=== PATIENT | male | born 1990 | race Caucasian/White ===

== ENCOUNTER 2021-04-01 07:54 | Outpatient (CLI) | payer OTHER, SELFPAY ==
[2021-04-04 13:05] LABS: Testosterone Total 616 ng/dL (250-1100)
== END 2021-04-01 07:55 | disposition home or self-care (01) ==
PROVIDERS: PCP Family Medicine Adolescent Medicine; Visit Provider Internal Medicine Endocrinology, Diabetes & Metabolism
DX: R68.82 Decreased libido (principal); R53.83 Other fatigue; N52.9 Male erectile dysfunction, unspecified
CPT/HCPCS: 36415; 84402; 84403

== ENCOUNTER 2021-12-27 11:56 | Outpatient (CLI) | payer OTHER, SELFPAY ==
[2021-12-27 17:16] LABS: Anion Gap 8 mmol/L (8-16); Blood Urea Nitrogen 17 mg/dL (9-20); Calcium 9.6 mg/dL (8.4-10.2); Carbon Dioxide 27 mmol/L (22-30); Chloride 104 mmol/L (98-107); Estimated Glomerular Filt Rate > 60; Glucose 138 mg/dL (65-110); HDL Direct 51 mg/dL; Potassium 4.2 mmol/L (3.4-5.0); Sodium 139 mmol/L (137-145)
[2021-12-27 17:26] LABS: LDL Cholesterol Direct 114 mg/dL
[2021-12-27 17:38] LABS: Creatinine Urine 169.7 mg/dL
[2021-12-27 17:42] LABS: Microalbumin Urine Random 44.1 mg/L (0-16.7)
== END 2021-12-27 11:57 | disposition home or self-care (01) ==
LOC: ANHWCLAB 11:59
PROVIDERS: PCP Family Medicine Adolescent Medicine; Visit Provider Internal Medicine Endocrinology, Diabetes & Metabolism
DX: E10.65 Type 1 diabetes mellitus with hyperglycemia (principal)
CPT/HCPCS: 36415; 80048; 82043; 83718; 83721; 84443

== ENCOUNTER 2022-05-20 09:51 | Outpatient (CLI) | payer OTHER, SELFPAY ==
--- NOTE | ~2022-05-20 | MR_ITS ---
EXAMINATION: MR shoulder RT wo con DATE: 05/20/2022 10:34 INDICATION: Left lower quadrant abdominal pain TECHNIQUE: Magnetic resonance imaging (MRI) of the left shoulder was performed without intravenous co ntrast. Sequences included axial PD-weighted FS FSE, coronal oblique PD-weighted FS FSE, coronal obli que T2-weighted FS FSE, sagittal PD-weighted FS FSE, and sagittal T1-weighted SE. COMPARISON: None. FINDINGS: Coracoacromial arch: The acromion undersurface is flat in morphology (type I). The coracoacromial ligament is normal. Acro mioclavicular joint is normal. Rotator cuff: The supraspinatus, infraspinatus and teres minor tendons are normal. Mild subscapularis tendinopathy without discrete tear. Normal rotator cuff muscle bulk and signal. Biceps tendon, glenoid labrum and glenohumeral cartilage: Long head of the biceps tendon is normal. Glenoid labrum is normal. Mild partial-thickness cartilage loss along the anteroinferior glenoid tiny marginal osteophyte and minimal subarticular edema-like si gnal change at the anteroinferior rim of the glenoid. Fluid: Small amount of fluid in the long head biceps tendon sheath which is disproportionate to the physiolo gic amount fluid in the glenohumeral joint space consistent with mild bicipital tenosynovitis. No loo se osteochondral bodies. Small amount of fluid in the subacromial/subdeltoid bursa consistent with mi ld bursitis. Bones: No fracture or pathologic marrow replacing process. Small erosion at the superomedial aspect of the l molly tuberosity footplate of the subscapularis tendon. IMPRESSION: 1. Mild subscapularis tendinopathy without tear but with small erosion at the superomedial lesser tub erosity footplate of the tendon. 2. Mild right glenohumeral osteoarthritis Reviewed, dictated and finalized at location A. IMPRESSION: 1. Mild subscapularis tendinopathy without tear but with small erosion at the s uperomedial lesser tuberosity footplate of the tendon. 2. Mild right glenohumeral osteoarthritis
== END 2022-05-20 09:52 ==
LOC: MICIMG 09:52
PROVIDERS: PCP Family Medicine Adolescent Medicine; Visit Provider Orthopaedic Surgery
DX: M25.511 Pain in right shoulder (principal); M77.8 Other enthesopathies, not elsewhere classified; M19.011 Primary osteoarthritis, right shoulder
CPT/HCPCS: 73221

== ENCOUNTER 2022-05-25 07:03 | Outpatient (CLI) | payer OTHER, SELFPAY ==
--- NOTE | 2022-05-25 07:44 | ECG_ITS ---
Measurements Intervals [place] Rate: 86 P: 39 MN: 150 QRS: 14 QRSD: 88 T: 50 QT: 342 QTc: 411 Interpretive Statements SINUS RHYTHM DELAYED PRECORDIAL R/S TRANSITION ST ELEVATION IN DIFFUSE LEADS- PROBABLY EARLY REPOLARIZATION ABNORMALITY BORDERLINE ECG Electronically Signed On 05-25-2022 9:47:06 CDT by Gabino Faustin D.O.
[2022-05-25 08:09] LABS: Anion Gap 6 mmol/L (8-16); Blood Urea Nitrogen 16 mg/dL (9-20); Carbon Dioxide 28 mmol/L (22-30); Chloride 106 mmol/L (98-107); Estimated Glomerular Filt Rate > 60; Glucose 259 mg/dL (65-110); Potassium 4.2 mmol/L (3.4-5.0); Sodium 140 mmol/L (137-145)
== END 2022-05-25 07:04 | disposition home or self-care (01) ==
PROVIDERS: Anesthesiology; PCP Family Medicine Adolescent Medicine; Visit Provider Orthopaedic Surgery
DX: E10.65 Type 1 diabetes mellitus with hyperglycemia (principal)
CPT/HCPCS: 36415; 80048; 93005

== ENCOUNTER 2022-06-01 00:53 | Day surgery (SDC) | payer OTHER, SELFPAY ==
[2022-05-23 13:02] VITALS: BMI 27.9
--- NOTE | 2022-05-23 13:16 | PC.NURSE ---
Report to the Outpatient Waiting Room, entrance under the green pavilion located off [facility], at time 6:00 on date 06/01/22. OR Time: 7:30. - You and your visitor will be asked a series of questions to screen for COVID 19 for your protection. - Only one visitor is allowed at this time. - The patient visitor is requested to leave or wait in car when not with patient. - A mask is required within the hospital. Patients may have clear liquids (water, carbonated beverages, clear teas, apple juice) until 3 hours prior to surgery with a maximum of 20 ounces. - No food from midnight until time of surgery Take the following medications with a SIP of water the morning of surgery: CONTINUE BASAL RATE ON INSULIN PUMP Medications to discontinue per physician: N/A Date to take last dose: N/A Please no make-up, nail mexican, hairspray, perfume, deodorant, or body powder the day of surgery. No jewelry (including any body piercings) or valuables the day of surgery, leave them at home. Please take a shower or bath the night before, or the morning of, surgery with an antibacterial soap. Wear comfortable, loose fitting clothing. - Jewelry must be removed prior to entering the operating room. Rings and piercings that are not removed may be cut off. - The hospital will not accept responsibility for valuables. - Please leave all valuables, including medications, at home the day of surgery. If you are going home after surgery, a licensed emergency vehicle driver must drive you home. - NO public transportation without another adult. - We recommend that an adult stay with you for 24 hours following discharge. - We also recommend that you do not drive, make important decision, drink alcoholic beverages, or take any drugs that were not prescribed by your health care provider for at least 24 hours after your discharge time. Follow any additional instructions given to you from your surgeon. If you or anyone in your household have experienced Covid symptoms in the past week, please notify your surgeon or the nurse liaison at the phone number below for possible testing. Telephone instructions given to PT - JANA BARTON and asked if any additional questions and then verbalized understanding. Patient advised to call surgeon office or pre surgery nurse liaison [phone] if any additional questions.
--- NOTE | 2022-05-31 13:40 | WPDANESEPPF ---
Anes - Initial Pre Proc Eval Procedure: Operation Date: 06/01/22 07:30 Proposed Procedures p Arthroscopic Capsular Release Right Shoulder - Bishop Orourke MD Date/Time: 05/31/22 13:40 Surgeon: Bishop Orourke MD Pre Op Diagnosis: adhesive capsulitis right shoulder Patient Data Age: 31 Gender: M Height: 1.78 m Weight: 88.45 kg Allergies Allergy/AdvReac Type Severity Reaction Status Date / Time No Known Allergies Allergy Verified 06/01/22 06:09 Home Medications Medication Instructions Recorded Confirmed Type blood-glucose meter (ReliOn #1 ea 02/10/20 04/19/22 History All-In-One Meter kit) glucagon 1 mg/0.2 mL subcutaneous 1 mg (0.2 mL) subcut ONCE PRN 02/10/20 05/23/22 Rx syringe (Gvoke Syringe) hypoglycemia coma #0.2 mL acetone (urine) test (Ketone Care #25 ea 10/04/20 04/19/22 Rx strips) insulin lispro 100 unit/mL See Rx Instructions .Route 12/27/21 05/23/22 Rx subcutaneous solution .COMPLEX #90 mL Patient hx anesthesia problems: none Family hx anesthesia problems: none Results Review: All pre-operative results and documents have been reviewed as part of the pre-operative evaluation. 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 Type 1 diabetes mellitus Type 1 diabetes mellitus with hyperglycemia Surgical History Surgical History History of eye surgery [place] teeth removed Family History Family History Mother Depression Family history of alcoholism Grandparent Family history of alcoholism Lung cancer Grandparent Lung cancer Other Diabetes mellitus Social History Social History Smoking status: Never smoker Second hand tobacco smoke exposure: No Alcohol intake: current Drinks per week: 1 Alcohol use details: 2 per month socially Substance use: never Substance use type: does not use Living arrangements: with family Additional occupation/education comments: works in a [employer] Gender identity (if verbalized by the patient): Male Sexual Orientation (if Verbalized by the Patient): Straight or Heterosexual Spiritual care concerns: No Agree to blood products: Yes Anes - Eval Final PreProcedure Day of Procedure 05/31/22 13:40 Patient weight: overweight Heart: regular rate and rhythm Lungs: clear to auscultation and normal air movement Airway: Mallampati scale class II Neurological: alert and oriented Last oral intake: >/= 8 hours ASA classification: III Emergent: no Anesthetic plan: proceed Anesthesia type and monitoring: general ETT Results Review: All pre-operative results and documents have been reviewed as part of the pre-operative evaluation. Informed Consent: The patient's anesthetic plan and its attendant risks and benefits were discussed with the patient/family/POA. Questions were solicited and answers provided to the satisfaction of the patient/family/POA.
--- NOTE | 2022-05-31 13:42 | WPDANESPNB ---
Anes - Peripheral Nerve Block Date/Time: 05/31/22 13:42 I have discussed with the patient/family/POA the placement of a peripheral nerve block for post-operative pain management, including associated risks, benefits, complications, and side effects. Alternative methods of post-operative analgesia were detailed. Questions were solicited and answers provided to the satisfaction of the patient/family/POA. Time-Out: A pre-procedural Time-Out was completed immediately before starting the procedure and confirmed: Patient Identification, Site, Procedure, Patient Position and the Availability of Requisite Equipment. Clinical Indications: Acute post-operative pain management requested by the operative surgeon. Nerve Block Insertion Note Anes-nerve block: supraclavicular right Patient position: supine Skin prep: chlorhexidine Needle: 22 gauge, stimulating, insulated echogenic needle. Needle length: 80 mm Technique: ultrasound (in plane) Injectate: bupivacaine 0.5% with epi 5 mcg/ml (20cc) Observations: tolerated well Complications: none Procedure start time:: 720 Procedure end time:: 725
[2022-06-01] VITALS (8 sets, daily range): BP systolic 95–152; BP diastolic 62–103; PULSE 53–87; RESP 14–17; TEMP 36.2–36.6; O2SAT 96–99
[2022-06-01] MEDS: ACETAMINOPHEN 500 MG TABLET 1000 MG PO (06:10)
[2022-06-01 06:57] LABS: Glucose Point of Care 227 mg/dl (65-105)
[2022-06-01] MEDS: KETOROLAC 15 MG/ML VIAL (*BKC) IV PUSH (07:02)
[2022-06-01] MEDS: LACTATED RINGERS 1,000 ML 30 ML IV CONT ×2 (07:02→08:58)
--- NOTE | 2022-06-01 07:15 | WPDHPUPDATE1 ---
History and Physical Update Update Date/Time: 06/01/22 07:15 History and Physical has been reviewed, including an updated exam of the patient. There are NO changes in the patient's condition. Risks, benefits, and alternatives have been discussed and questions answered. Patient agrees to proceed with procedure.
[2022-06-01] MEDS: ceFAZolin 2 GM/D5W 50 ML 2 GM/50 ML BAG IVPB (07:33)
[2022-06-01] MEDS: BUPIVACAINE/EPINEPHRINE 0.25% 50 ML VIAL 30 ML INFILTRATE (08:12)
[2022-06-01 09:12] LABS: Glucose Point of Care 198 mg/dl (65-105)
--- NOTE | 2022-06-01 11:35 | SUR.PHASEII ---
CORRECTION: WORKLIST CHARTED AT 1120 SHOULD BE 1025.
--- NOTE | 2022-06-01 15:15 | W.PM.PROC2 ---
Procedure Note - Detailed Date of Procedure 06/01/22 Pre-op Diagnosis adhesive capsulitis right shoulder Post-op Diagnosis Same Procedure Performed Arthroscopic capsular release with manipulation under anesthesia, right shoulder. Surgeon Bishop Orourke MD Employee Placement Specialist Belem Teran PA-C Anesthesia General Findings Severe contracture. Glenohumeral cartilage appeared healthy. The rotator cuff appeared normal. Description of Procedure Preoperative antibiotics were given. An interscalene block was performed. The patient was brought to the operating room, and carefully placed in the lateral decubitus position with the justice bag. The head neck were carefully positioned. 10 pounds of longitudinal traction was applied to the arm after sterile prep and drape. Examination under anesthesia revealed extreme tightness of the shoulder with marked limitation in movement. The shoulder required manipulation prior to introduction of the cannula. Inspection revealed moderate capsulitis. The articular cartilage was intact. The capsule was very thickened and extremely tight. The labrum and biceps were intact. The rotator cuff appeared normal. An accessory anterosuperior cannula was created. The tissue resection device was used to remove the anterior capsule carefully. The camera was switched to the anterior portal. The posterior capsule was then resected in a similar fashion. Particularly care was taken in the axillary pouch. The tips of the resector were always in view. At this point the glenohumeral articulation was much less stiff. The arthroscopic instruments were removed. Inspection in the subacromial bursa did not reveal any abnormal pathology or signs of impingement. Manipulation was then performed in the typical manner. Motion was greatly improved. The wounds were closed with interrupted 4-0 Monocryl suture followed by Steri-Strips. The patient was extubated and brought to recovery room in stable condition. There were no complications. Physician escrow assistant, Belem Dick PA-C, required for surgery; including patient positioning, draping, arthroscopic camera operation, maintaining instrument position, wound closure, and dressing and sling placement. Estimated Blood Loss -5.0 Pathology None sent Complications No immediate complications Condition Stable Disposition PACU [facility] Billing Surgery - Charge Forward: Surgery Billing
== END 2022-06-01 10:30 | disposition home or self-care (01) ==
PROVIDERS: PCP Family Medicine Adolescent Medicine; Visit Provider Orthopaedic Surgery
PROC: (CPT 29805; principal; 2022-06-01 07:30)
DX: M75.01 Adhesive capsulitis of right shoulder (principal); G89.18 Other acute postprocedural pain; E10.3599 Type 1 diabetes mellitus with proliferative diabetic retinopathy without macular edema, unspecified eye; Z96.41 Presence of insulin pump (external) (internal); Z79.4 Long term (current) use of insulin
CPT/HCPCS: 23700; 64415; 82948; A4565; A9270; J0690; J1885; J2250; J2405; J2704; J3010; J7120

== ENCOUNTER 2023-05-31 11:36 | Outpatient (CLI) | payer OTHER, SELFPAY ==
[2023-05-31 13:05] LABS: Alanine Aminotransferase 25 U/L (6-50); Albumin Level 4.5 g/dL (3.5-5.1); Alkaline Phosphatase 74 U/L (38-126); Anion Gap 7 mmol/L (8-16); Aspartate Amino Transferase 27 U/L (17-59); Bilirubin,Total 0.9 mg/dL (0.2-1.3); Blood Urea Nitrogen 13 mg/dL (9-20); Calcium 9.1 mg/dL (8.4-10.2); Carbon Dioxide 28 mmol/L (22-30); Chloride 102 mmol/L (98-107); Cholesterol 183 mg/dL (0-200); Estimated Glomerular Filt Rate > 60; Glucose 177 mg/dL (65-110); HDL Direct 51 mg/dL; Potassium 3.9 mmol/L (3.4-5.0); Sodium 137 mmol/L (137-145); Triglycerides 83 mg/dL (<150)
[2023-05-31 13:16] LABS: LDL Cholesterol Direct 102 mg/dL
[2023-05-31 14:11] LABS: Folic Acid 11.5 ng/mL (2.76->20)
[2023-05-31 15:55] LABS: Creatinine Urine 308.6 mg/dL
[2023-05-31 15:57] LABS: Microalbumin Urine Random 40.2 mg/L (0-16.7)
== END 2023-05-31 11:37 | disposition home or self-care (01) ==
LOC: ANHLAB 11:37
PROVIDERS: PCP Family Medicine Adolescent Medicine; Visit Provider Nurse Practitioner Family
DX: E10.9 Type 1 diabetes mellitus without complications (principal)
CPT/HCPCS: 36415; 80053; 80061; 82043; 82607; 82746; 84443

== ENCOUNTER 2025-01-31 21:20 | Emergency (ER) | payer OTHER, SELFPAY ==
--- NOTE | ~2025-01-31 | XR_ITS ---
HISTORY: fell roller skating COMPARISON: None TECHNIQUE: 3 views of the right knee were performed FINDINGS: No acute or subacute fracture, erosion, lytic or sclerotic lesion. Medial and lateral tibiofemoral joint space narrowing is identified. Small suprapatellar joint effusion is identified. The infrapatellar joint space is clear. IMPRESSION: Degenerative disease, without acute fracture Reviewed, dictated and finalized at location A.
--- OUTSIDE RECORDS SUMMARY | 2025-01-31 21:22 | XMS_ITS | Clinical Summary ---
Author Organization [facility] al Address [address] [place] [address] Care Team Providers Care Shearing Machine Feeder Name Role Phone Carlos Phan MD Primary Care Prov ider Allergies No known active allergies Active Problems Problem Noted Date Diagnosed Date Type 2 diabetes mellitus 03/21/2014 Overview (02/10/2017): DMII WO CMP NT [facility] Medical History Medical History Date Comments Type 1 diabetes mellitus (HCC) D iabetes type 1 Family History Medical History Relation Name Comments Other Other No family histo ry of Diabetes mellitus; Relation Name Status Comments Other Social History Tobacco Use Types Packs/Day Years Used Date Smoking Tobacco: Never Assessed Alcohol Use Standard Drinks/Week Comments No 0 (1 standard drink = 0.6 oz pur e alcohol) Personal Safety Answer Date Recorded Have you ever been in or are you currently in a harmful physical or emotional relationship or is someone making you feel afraid or unsafe? 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 Gender Identity Not on file Sexual Orientation Not on file Obstetrics History Last Filed Vital Signs Vital Sign Reading Time Taken Comments Blood Pressure 151/80 07/10/2023 1:00 PM CDT Pulse 96 07/10/2023 1:00 PM CDT Temperature 36.8 C (98.2 F) 07/10/2023 1:00 PM CDT Respiratory Rate 16 07/10/2023 1:00 PM CDT Oxygen Saturation 96% 07/10/2023 1:00 PM CDT Inhaled Oxygen Concentration - - Weight 88.5 kg (195 lb) 07/10/2023 3:35 AM CDT Height 177.8 cm (5' 10 ) 07/10/2023 3:35 AM CDT Body Mass Index 27.98 07/10/2023 3:35 AM CDT Plan of Treatment Health Maintenance Due Date Last Done Comments Albumin Creatinine Ratio, Urine 1989 Depression Screening 1989 Hemoglobin A1C 1989 Hepatitis C Screening 1989 eGFR 1989 Foot Exam 1989 Lipid Panel 1989 DTaP/Tdap/Td Vaccine (1 - Tdap) 2000 Varicella Vaccines (1 of 2 - 13+ 2-dose series) 2002 Hepatitis B Screening 2007 Regular Well Visit/Exam 18-64 2007 Pneumococcal vaccine <65 (1 of 2 - PCV) 2008 Influenza Vaccine (#1) 2024 Dilated Eye Exam 07/10/2024 07/10/2023 HPV Vaccines Aged Out No longer eligi ble based on patient's age to complete this topic Insurance [employer] [facility] PPO [facility] Care Teams Shearing Machine Feeder Relationship Specialty Start Date End Date Carlos Phan MD [address] [place] [address] PCP - General 03/01/11
--- OUTSIDE RECORDS SUMMARY | 2025-01-31 21:23 | XMS_ITS | Referral Summary ---
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
--- OUTSIDE RECORDS SUMMARY | 2025-01-31 21:23 | XMS_ITS | Clinical Summary ---
Author Organization [facility] Address [address] [place] [id number] Care Team Providers Care Transonic Engineer Name Role Phone None, Provider MD Primary Care Provider Unavaila ble Social History Tobacco Use Types Packs/Day Years Used Date Smoking Tobacco: Never Assessed Sex and Gender Information Value Date Recorded Sex Assigned at Not on file Legal Sex Male 4:48 PM CDT Gender Identity Not on file Sexual Orientation Not on file Plan of Treatment Health Maintenance Due Date Last Done Comments Annual Physical 1992 Hepatitis C 2007 DTaP, Tdap and Td Vaccines ( 1 - Tdap) 2008 Hepatitis B Vaccines (1 of 3 - 19+ 3-dose series) 2008 COVID-19 Vaccine (2023-2 5 season) 2024 12/09/2021, 11/18/2021 Influenza Adult (#1) 2024 HPV Vaccines Aged Out No longer eligi ble based on patient's age to complete this topic Meningococcal B Vaccine Aged Out No l onger eligible based on patient's age to complete this topic Meningococcal Vaccine Aged Out No jay анна eligible based on patient's age to complete this topic Pneumococcal Vaccine: Pediatrics (0 to 5 Years) and At-Risk Patients (6 to 64 Years) Aged Out No longer eligible b ased on patient's age to complete this topic RSV Immunizations Under 20 Months Aged Out No longer eligible b ased on patient's age to complete this topic Insurance [employer] Care Teams Transonic Engineer Relationship Specialty Start Date End Date None, Provider, PCP - General UNKNOWN PHYSICIAN SPECIALTY 07/09/23
[2025-01-31 21:38] VITALS: BP 149/77; PULSE 118; RESP 16; TEMP 36.5; O2SAT 99
--- OUTSIDE RECORDS SUMMARY | 2025-02-01 03:22 | XMS_ITS | Clinical Summary ---
Author Organization [facility] Address [address] [place] [id number] Care Team Providers Care Inspector Conveyor Line Name Role Phone None, Provider MD Primary [...] complete this topic Insurance [employer] Care Teams Inspector Conveyor Line Relationship Specialty Start Date End Date None, Provider, PCP - General UNKNOWN PHYSICIAN SPECIALTY 07/09/23
--- OUTSIDE RECORDS SUMMARY | 2025-02-01 03:22 | XMS_ITS | Clinical Summary ---
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
--- OUTSIDE RECORDS SUMMARY | 2025-02-01 03:22 | XMS_ITS | Referral Summary ---
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
--- NOTE | 2025-02-01 03:57 | ED_ITS ---
HPI - General Adult General Chief complaint: Extremity Injury, Lower Stated complaint: Right knee injury-fell roller skating Time Seen by Provider: 02/01/25 03:05 History of Present Illness HPI narrative: This is a 34-year-old male presenting after roller skating accident. Rotating with several children fell in front of him, all trying to avoid them he fell landing on his right knee. The 1st he was able to get up did not have much pain. However after went home took a nap you develop worsening swelling and increased pain. He is able to bear weight but has pain on flexion and extension. No other injuries. Related Data Home Medications ?Medication ?Instructions ?Recorded ?Confirmed ?Last Taken ?Type blood-glucose meter (ReliOn #1 ea 02/10/20 01/16/24 Unknown History All-In-One Meter kit) Allergies Allergy/AdvReac Type Severity Reaction Status Date / Time No Known Allergies Allergy Verified 01/31/25 21:21 [facility] Past Medical History Medical History Overweight (BMI 25.0-29.9) Proliferative retinopathy due to DM Insulin pump status Erectile dysfunction Low libido Type 1 diabetes mellitus with hyperglycemia Type 1 diabetes mellitus Surgical History Surgical History [place] teeth removed History of eye surgery Family History Family History Mother Depression Family history of alcoholism Grandparent Family history of alcoholism Lung cancer Grandparent Lung cancer Other Diabetes mellitus Social History Social History Smoking status: Never smoker Second hand tobacco smoke exposure: No Alcohol intake: current Drinks per week: 1 Alcohol use details: 3/MONTH Substance use: never Substance use type: does not use Lack of Transportation: No Lack of Food: Never True Current Housing: I Have Housing Concerned About Future Housing: No Difficulty Paying Gas/Electric Bills: No Difficulty Paying for Meds: No Currently Unemployed: No Education: Bachelor's Degree Difficulty w/ Childcare or Family Care: No Living arrangements: with family Additional living arrangements comments: GIRLFRIEND AND DAUGHTER Occupation/Education: occupation Additional occupation/education comments: works in a [employer] Gender identity (if verbalized by the patient): Male Sexual Orientation (if Verbalized by the Patient): Straight or Heterosexual Spiritual care concerns: No Agree to blood products: Yes Exam Narrative: APPEARANCE: No apparent distress. Head: atraumatic. EYES: EOMI, NOSE: Atraumatic NECK: Trachea midline RESPIRATORY: No increased rate of breathing CARDIOVASCULAR: RRR, ABDOMINAL: Non-distended MUSCULOSKELETAl: Focal exam of the right knee showed a large effusion. No bruising. Patient is able to extend and flex the knee although with some discomfort. He is able to bear weight. Pulses are intact in the foot. NEURO: Alert. Moving 4/4 extremities SKIN:: Warm, dry. Normal color PSYCHIATRIC: Normal affect Course Vital Signs Vital signs: Vital Signs Temperature 97.7 F 01/31/25 21:38 Pulse Rate 118 H 01/31/25 21:38 Respiratory Rate 16 01/31/25 21:38 Blood Pressure 149/77 H 01/31/25 21:38 Pulse Oximetry 99 01/31/25 21:38 Oxygen Delivery Room Air 01/31/25 21:38 Temperature 97.7 F 01/31/25 21:38 Pulse Rate 118 H 01/31/25 21:38 Respiratory Rate 16 01/31/25 21:38 Blood Pressure 149/77 H 01/31/25 21:38 Pulse Oximetry 99 01/31/25 21:38 Oxygen Delivery Room Air 01/31/25 21:38 Medical Decision Making MDM Narrative Medical decision making narrative: -Course: 34-year-old male presenting with the pain after fall. X-ray is negative for fracture. He does have a knee effusion. In the was wrapped. He was given crutches for comfort. Given pain medication. Given for follow-up with orthopedics. Given return precautions for worsening pain or weakness to his leg. -DDX includes but is not limited to: Bony injury, internal derangement, hemarthrosis, knee effusion -Co-morbidities complicating care:diabetes Vital Signs Vital Signs: Vital Signs Temperature 97.7 F 01/31/25 21:38 Pulse Rate 118 H 01/31/25 21:38 Respiratory Rate 16 01/31/25 21:38 Blood Pressure 149/77 H 01/31/25 21:38 Pulse Oximetry 99 01/31/25 21:38 Oxygen Delivery Room Air 01/31/25 21:38 Temperature 97.7 F 01/31/25 21:38 Pulse Rate 118 H 01/31/25 21:38 Respiratory Rate 16 01/31/25 21:38 Blood Pressure 149/77 H 01/31/25 21:38 Pulse Oximetry 99 01/31/25 21:38 Oxygen Delivery Room Air 01/31/25 21:38 Discharge Plan Discharge Clinical Impression: Acute knee pain Patient Disposition: Home, Self-Care Condition: Stable Instructions: Antibiotic Form, Swollen Knee Joint (ED), Knee Pain (ED) Additional Instructions: You were seen in the emergency department for knee pain. Please use Motrin, Tylenol, and Robaxin for pain. Keep the joint wrapped with Last bandage wrap and use ice to reduce swelling. Please follow-up with the orthopedic surgeon listed below. You develop worsening pain, or weakness your leg when to return to the emergency department for re-evaluation. Patient Language: Spanish Prescriptions: New acetaminophen 500 mg tablet 1,000 mg PO TID PRN (Reason: arturo) 7 Days Qty: 42 0RF ibuprofen 800 mg tablet 800 mg PO TID PRN (Reason: pain) 7 Days Qty: 21 0RF methocarbamol 750 mg tablet 1,500 mg PO TID Qty: 35 0RF No Action Gvoke Syringe 1 mg/0.2 mL syringe 1 mg SUB-Q ONCE PRN (Reason: hypoglycemia coma) Qty: 0.2 0RF Rx Instructions: until target blood sugar attained (DME) Ketone Care Strip See Rx Instructions .ROUTE .MEDSUPPLY Qty: 25 0RF Rx Instructions: As directed insulin glargine [Lantus Solostar U-100 Insulin] 100 unit/mL (3 mL) insulin pen 30 unit subcut QAM PRN (Reason: insulin pump malfuction) Qty: 15 1RF (DME) blood-glucose meter [ReliOn All-In-One Meter] Kit See Rx Instructions .ROUTE .MEDSUPPLY Qty: 1 Rx Instructions: As directed insulin lispro 100 unit/mL solution See Rx Instructions .ROUTE .COMPLEX Qty: 90 0RF Dose Instruction: INJECT 100 UNITS UNDER THE SKIN DAILY VIA CONTINUOUS INFUSION; TO BE USED WITH INSULIN PUMP Rx Instructions: INJECT 100 UNITS UNDER THE SKIN DAILY VIA CONTINUOUS INFUSION; TO BE USED WITH INSULIN PUMP Follow-up/Referrals: Carlos Phan MD [Primary Care Provider] -
[2025-02-01] MEDS: HYDROcodone/acetaminophen (*CRX) 5-325 MG TABLET 2 TAB PO (04:15)
[2025-02-01] MEDS: KETOROLAC 15 MG/ML VIAL (*BKC) IM (04:16)
[2025-02-01 04:26] LABS: Glucose Point of Care 213 mg/dl (65-105)
--- NOTE | 2025-02-01 04:28 | PC.NURSE ---
Rn went to discharge pt. Pt started leaving the room on his crutches when he asked if I can check his blood sugar due to him feeling nauseous. RN educated pt that the pain medications we gave have side effects that can cause nausea. Rn gave pt some snacks to eat at bedside before leaving to make sure pt was okay to exit ED. Rn also checked pt blood sugar and it was 212.
--- NOTE | 2025-02-01 04:43 | PC.NURSE ---
Pt states he is feeling much better and feels comfortable to leave ED. Pt exited ED with no difficulties on his crutches at this time.
[2025-02-01 04:44] VITALS: BP 136/81; PULSE 92; RESP 18; O2SAT 100
== END 2025-02-01 04:45 | disposition home or self-care (01) ==
PROVIDERS: Emergency Provider Emergency Medicine; PCP Family Medicine Adolescent Medicine
DX: S89.91XA Unspecified injury of right lower leg, initial encounter (principal); E10.3599 Type 1 diabetes mellitus with proliferative diabetic retinopathy without macular edema, unspecified eye; Z96.41 Presence of insulin pump (external) (internal); Z79.4 Long term (current) use of insulin; V00.121A Fall from non-in-line roller-skates, initial encounter; Y93.51 Activity, roller skating (inline) and skateboarding
CPT/HCPCS: 73562; 82948; 96372; 99283; A9270; J1885

== ENCOUNTER 2025-02-03 09:38 | Outpatient (CLI) | payer OTHER, SELFPAY ==
--- NOTE | ~2025-02-03 | US_ITS ---
EXAMINATION: US venous doppler LE RT DATE: 02/03/2025 10:49 INDICATION: Right lower limb pain TECHNIQUE: Grayscale ultrasound images without and with compression and Doppler ultrasound images of the right lower extremity veins were obtained. COMPARISON: None. FINDINGS: Noncompressible occlusive appearing deep venous anastomosis in the deeper of the paired posterior tib ial veins. The second posterior tibial vein remains patent. The visualized portions of right common f emoral vein, profunda (deep) femoral vein, femoral vein, popliteal vein, peroneal trunk, peroneal vei ns, gastrocnemius vein and greater saphenous vein outflow are patent. IMPRESSION: 1. [id number] deep venous thrombosis in one of the paired right posterior tibial veins of the ca lf. Reviewed, dictated and finalized at location A. IMPRESSION: 1. Wzbcf-[id number] deep venous thrombosis in one of the paired right posterior tibial veins of the calf.
--- OUTSIDE RECORDS SUMMARY | 2025-02-03 10:31 | XMS_ITS | Referral Summary ---
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
--- OUTSIDE RECORDS SUMMARY | 2025-02-03 10:31 | XMS_ITS | Clinical Summary ---
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
--- OUTSIDE RECORDS SUMMARY | 2025-02-03 10:31 | XMS_ITS | Clinical Summary ---
Author Organization [facility] Address [address] [place], [place] [id number] Care Team Providers Care Trader Name Role Phone None, Provider MD Primary [...] complete this topic Insurance [employer] Care Teams Trader Relationship Specialty Start Date End Date None, Provider, PCP - General UNKNOWN PHYSICIAN SPECIALTY 07/09/23
== END 2025-02-03 09:39 | disposition home or self-care (01) ==
PROVIDERS: PCP Family Medicine Adolescent Medicine; Visit Provider Orthopaedic Surgery
DX: I82.441 Acute embolism and thrombosis of right tibial vein (principal); M79.89 Other specified soft tissue disorders
CPT/HCPCS: 93971

== ENCOUNTER 2025-02-06 09:36 | Outpatient (CLI) | payer OTHER, SELFPAY ==
--- NOTE | ~2025-02-06 | MR_ITS ---
EXAMINATION: MR knee RT wo con DATE: 02/06/2025 10:27 INDICATION: Right knee pain TECHNIQUE: Magnetic resonance imaging (MRI) of the right knee was performed without intravenous contr ast. Sequences included coronal PD-weighted FSE, coronal PD-weighted FS FSE, sagittal T2-weighted FS E, sagittal PD-weighted FS FSE and axial PD weighted fat saturated FSE. COMPARISON: None. FINDINGS: Medial compartment: Medial meniscus is normal. Mild partial-thickness cartilage loss with smooth chondral surface along t he anterior weightbearing medial femoral condyle and the posterior aspect of the medial tibial platea u. Lateral compartment: Lateral meniscus is normal. Articular cartilage is normal. Patellofemoral compartment: Articular cartilage is normal. Ligaments and tendons: Anterior cruciate ligament is normal. There is at least mild partial tear of the distal aspect of the posterior cruciate ligament which is mildly thickened with increased intrasubstance signal but witho ut evident discontinuous ligament fibers or fluid signal intensity tear defect. The medial collateral ligament and fibular collateral ligament complex are normal. Laxity of the distal patellar tendon wi th associated bands of magic angle artifact associated with the undulations of the distal tendon. The extensor mechanism is otherwise normal. The visualized medial and lateral hamstring tendons as well as the iliotibial band are normal. Fluid: Small knee joint effusion at the suprapatellar pouch. No loose osteochondral bodies identified. Osseous/other: There is a nondisplaced intra-articular fracture extending intra to posteriorly underlying the footpl ates of the anterior and posterior cruciate ligaments along the intercondylar eminence. The fracture is a V-shaped configuration on the coronal images with the lateral fracture plane extending across th e articular cortex at the junction of the lateral tibial plateau and the articular portion of the int ercondylar eminence. No evident associated chondral disruption significant fracture gap or incongruit y at the articular cortex. No pathologic marrow replacing process. IMPRESSION: 1. Nondisplaced avulsion fracture of the intercondylar eminence with intra-articular extension to inv olve the lateral tibial plateau. 2. At least partial tear at the distal posterior cruciate ligament which inserts at the posterior asp ect of the nondisplaced fracture fragment. 3. 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 Reviewed, dictated and finalized at location A. IMPRESSION: 1. Nondisplaced avulsion fracture of the intercondylar eminence with intra-maci cular extension to involve the lateral tibial plateau. 2. At least partial tear at the distal posterior cruciate ligament which insert s at the posterior aspect of the nondisplaced fracture fragment. 3. 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
== END 2025-02-06 09:37 | disposition home or self-care (01) ==
PROVIDERS: PCP Family Medicine Adolescent Medicine; Visit Provider Orthopaedic Surgery
DX: S82.124A Nondisplaced fracture of lateral condyle of right tibia, initial encounter for closed fracture (principal); S83.241A Other tear of medial meniscus, current injury, right knee, initial encounter; S83.521A Sprain of posterior cruciate ligament of right knee, initial encounter; X58.XXXA Exposure to other specified factors, initial encounter; M17.11 Unilateral primary osteoarthritis, right knee
CPT/HCPCS: 73721

== ENCOUNTER 2025-03-12 08:37 | Outpatient (CLI) | payer OTHER, SELFPAY ==
--- OUTSIDE RECORDS SUMMARY | 2025-03-12 08:47 | XMS_ITS | Clinical Summary ---
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
--- OUTSIDE RECORDS SUMMARY | 2025-03-12 08:47 | XMS_ITS | Referral Summary ---
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
--- OUTSIDE RECORDS SUMMARY | 2025-03-12 08:47 | XMS_ITS | Clinical Summary ---
Author Organization [facility] Address [address] [place] [address] Care Team Providers Care Military Logistics Specialist Name Role Phone None, Provider MD Primary [...] - 19+ 3-dose series) 2008 COVID-19 Vaccine ( - 2023-2 5 season) 2024 12/09/2021, 11/18/2021 HPV Vaccines Aged Out No longer eligi ble based on patient's age to complete this topic Meningococcal B Vaccine Aged Out No l onger eligible based on patient's age to complete this topic Meningococcal Vaccine Aged Out No jay анна eligible based on patient's age to complete this topic Pneumococcal Vaccine: Pediatrics (0 to 5 Years) and At-Risk Patients (6 to 49 Years) Aged Out No longer eligible b ased on patient's age to complete this topic RSV Immunizations Under 20 Months Aged Out No longer eligible b ased on patient's age to complete this topic Insurance [employer] Care Teams Military Logistics Specialist Relationship Specialty Start Date End Date None, Provider, PCP - General UNKNOWN PHYSICIAN SPECIALTY 07/09/23
[2025-03-12 09:22] LABS: Alanine Aminotransferase 29 U/L (6-50); Albumin Level 4.4 g/dL (3.5-5.1); Alkaline Phosphatase 81 U/L (38-126); Anion Gap 9 mmol/L (4-12); Aspartate Amino Transferase 34 U/L (17-59); Bilirubin,Total 0.5 mg/dL (0.2-1.3); Blood Urea Nitrogen 15 mg/dL (9-20); Calcium 9.1 mg/dL (8.4-10.2); Carbon Dioxide 27 mmol/L (22-30); Chloride 105 mmol/L (98-107); Cholesterol 189 mg/dL (0-200); Estimated Glomerular Filt Rate > 60; Glucose 136 mg/dL (65-110); HDL Direct 56 mg/dL; Potassium 4.1 mmol/L (3.4-5.0); Sodium 141 mmol/L (137-145); Triglycerides 71 mg/dL (<150)
[2025-03-12 09:33] LABS: LDL Cholesterol Direct 97 mg/dL
[2025-03-12 09:39] LABS: Free T4 Free Thyroxine 1.19 ng/dL (0.78-2.19); Vitamin D 25 Hydroxy 20.6 ng/mL
[2025-03-12 09:52] LABS: Creatinine Urine 251.4 mg/dL
[2025-03-12 09:56] LABS: MALB Creatinine Ratio 5.1 mg/g (0-30); Microalbumin Urine Random 12.7 mg/L (0-16.7)
[2025-03-12 10:01] LABS: Hemoglobin A1C 7.6 % (<5.7)
== END 2025-03-12 08:38 | disposition home or self-care (01) ==
LOC: ANHLAB 08:40
PROVIDERS: PCP Family Medicine Adolescent Medicine; Visit Provider Nurse Practitioner Family
DX: E10.319 Type 1 diabetes mellitus with unspecified diabetic retinopathy without macular edema (principal); E78.5 Hyperlipidemia, unspecified; E10.3593 Type 1 diabetes mellitus with proliferative diabetic retinopathy without macular edema, bilateral
CPT/HCPCS: 36415; 80053; 80061; 82043; 82306; 82607; 83036; 84439; 84443

== ENCOUNTER 2025-07-11 09:49 | Outpatient (CLI) | payer OTHER, SELFPAY ==
--- OUTSIDE RECORDS SUMMARY | 2025-07-11 09:52 | XMS_ITS | Clinical Summary ---
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 Gender Identity Not on file Sexual Orientation [...] 3:35 AM CDT Height 177.8 cm (5' 10) 07/10/2023 3:35 AM CDT Body Mass Index 27.98 07/10/2023 3:35 AM CDT Plan of Treatment Health Maintenance Due Date Last Done Comments Albumin Creatinine Ratio, Urine 1989 Depression Screening 1989 Hemoglobin A1C 1989 Hepatitis C Screening 1989 eGFR 1989 Foot Exam 1989 Lipid Panel 1989 DTaP/Tdap/Td Vaccine (1 - Tdap) 2000 Varicella Vaccines (1 of 2 - 13+ 2-dose series) 2001 Hepatitis B Screening 2007 Regular Well Visit/Exam 18-64 2007 Pneumococcal vaccine <65 (1 of 2 - PCV) 2008 HPV Vaccines (1 - 3-dose SCDM series) 2016 Dilated Eye Exam 07/10/2024 07/10/2023 Influenza Vaccine (#1) 2025 Insurance [facility] P[facility] Care Teams Teacher Education Instructor Relationship Specialty Start Date End Date Carlos Phan MD PCP - General 03/01/11
--- OUTSIDE RECORDS SUMMARY | 2025-07-11 09:52 | XMS_ITS | Clinical Summary ---
Author Organization [facility] Address [address] [place], [place] [address] Care Team Providers Care Bundle Tier Name Role Phone None, Provider MD Primary [...] of 3 - 19+ 3-dose series) 2008 HPV Vaccines (1 - 3-dose SCD M series) 2016 COVID-19 Vaccine (3 - 2024-2 6 season) 2025 12/09/2021, 11/18/2021 Meningococcal B Vaccine Aged Out No l [...] complete this topic Insurance [employer] Care Teams Bundle Tier Relationship Specialty Start Date End Date None, Provider, PCP - General UNKNOWN PHYSICIAN SPECIALTY 07/09/23
[2025-07-11 10:45] LABS: Free T4 Free Thyroxine 1.20 ng/dL (0.78-2.19)
[2025-07-11 10:55] LABS: Thyroid Stimulating Hormone 2.560 uIU/mL (0.465-4.680)
== END 2025-07-11 09:50 | disposition home or self-care (01) ==
LOC: ANHLAB 09:51
PROVIDERS: PCP Family Medicine Adolescent Medicine; Visit Provider Nurse Practitioner Family
DX: R79.89 Other specified abnormal findings of blood chemistry (principal)
CPT/HCPCS: 36415; 84439; 84443